=== PATIENT | male | born 1990 | race Caucasian/White ===

== ENCOUNTER 2023-09-21 15:46 | Emergency (ER) | payer SELFPAY ==
[2023-09-21 15:57] VITALS: BP 134/87; PULSE 89; RESP 16; TEMP 37.4; O2SAT 98
--- NOTE | 2023-09-21 17:22 | ED.URI ---
HPI - URI/Sore Throat General Chief Complaint: Upper Respiratory Infection Stated Complaint: Sore throat Time Seen by Provider: 09/21/23 17:14 Source: RN notes reviewed Mode of arrival: ambulatory Limitations: no limitations History of Present Illness HPI Narrative: Patient presents today with a 3 day history of sore throat, cough, slight congestion. Currently rates his pain 8/10 and has been taking Tylenol, DayQuil, and NyQuil with mild relief. Denies known sick contacts or any additional symptoms. Related Data Home Medications Medication Instructions Recorded Confirmed No Home Medications 09/21/23 09/21/23 Allergies Allergy/AdvReac Type Severity Reaction Status Date / Time amoxicillin Allergy Intermediate Hives Verified 09/21/23 16:08 erythromycin base Allergy Intermediate Hives Verified 09/21/23 16:08 Penicillins Allergy Intermediate Hives Verified 09/21/23 16:08 Review of Systems Review of Systems: CONSTITUTIONAL: Denies body aches, fever, chills, or sweats. EYES: Denies visual changes, redness, or discharge. ENT: Denies rhinorrhea, or otalgia.+ sore throat, congestion CARDIOVASCULAR: Denies chest pain, palpitations, or edema. RESPIRATORY: Denies dyspnea.+ cough GASTROINTESTINAL: Denies abdominal pain, nausea, vomiting, or diarrhea. GENITOURINARY: Denies dysuria or hematuria. SKIN: Denies rash, itching, or wounds. MUSCULOSKELETAL: Denies back pain, joint pain, or myalgia. NEUROLOGIC: Denies headache, numbness, tingling, or weakness. PSYCH: Denies depression or anxiety. [facility] Family History Family History Other Family history of cardiovascular disease Social History Social History Smoking status: Never smoker Alcohol intake: current Comments At time of signature, I have reviewed and agree with nursing past medical, surgical, social and family history unless otherwise noted. Please see nursing chart for further information. There is no relevant family history pertinent to the presenting complaint Exam Narrative: GENERAL: Mildly ill-appearing, well-nourished, and in no acute distress. HEAD: Normocephalic, atraumatic. EYES: EOMI. No redness or drainage. Conjunctivae normal. ENT: Mucous membranes pink and moist. Nares clear. No rhinorrhea. TMs normal bilaterally. Throat normal with small amount of white postnasal drainage. Uvula midline. NECK: Normal AROM. Supple. Right anterior cervical chain lymphadenopathy CHEST: No respiratory distress. Clear to auscultation. HEART: Regular rate and rhythm. No murmur appreciated. EXTREMITIES: Normal range of motion. No edema. SKIN: Warm, dry, no rash. Capillary refill normal. Normal skin turgor. NEURO: No focal deficits. Alert and oriented x3. Gait steady. PSYCH: Normal affect. No signs of depression or anxiety. Course Course Level of Care: Express Care Visit Vital Signs Vital signs: Vital Signs Temperature 99.4 F 09/21/23 15:57 Pulse Rate 89 09/21/23 15:57 Respiratory Rate 16 09/21/23 15:57 Blood Pressure 134/87 09/21/23 15:57 Pulse Oximetry 98 09/21/23 15:57 Oxygen Delivery Room Air 09/21/23 15:57 Temperature 99.4 F 09/21/23 15:57 Pulse Rate 89 09/21/23 15:57 Respiratory Rate 16 09/21/23 15:57 Blood Pressure 134/87 09/21/23 15:57 Pulse Oximetry 98 09/21/23 15:57 Oxygen Delivery Room Air 09/21/23 15:57 Reviewed MDM - URI/Sore Throat MDM Narrative Medical decision making narrative: Rapid strep negative. Culture pending. Patient declines testing for influenza or COVID-19. Symptoms likely viral in etiology. Discussed [id number] treatment and duration of illness. No prescription medications indicated at this time. Anticipatory guidance given. Differential Diagnosis Differential diagnosis: Likely upper respiratory infection, viral infection, influenza, p
== END 2023-09-21 17:30 | disposition home or self-care (01) ==
PROVIDERS: Emergency Provider Nurse Practitioner; PCP Family Medicine
DX: J06.9 Acute upper respiratory infection, unspecified (principal)
CPT/HCPCS: 87081; 87880; 99213; G0463

== ENCOUNTER 2024-02-10 11:43 | Outpatient (CLI) | payer OTHER, SELFPAY ==
--- NOTE | ~2024-02-10 | XR_ITS ---
EXAMINATION: XR chest 2V 02/10/2024 12:01 INDICATION: Cough PROCEDURE: 2 view chest COMPARISON: 10/13/2014 FINDINGS: The lungs are clear. The cardiomediastinal silhouette is within normal limits. There are no pleural effusions. There is no pneumothorax suspected. IMPRESSION: 1: NO ACUTE CARDIOPULMONARY DISEASE. Reviewed, dictated and finalized at location B.
== END 2024-02-10 11:44 ==
LOC: MICIMG 11:46
PROVIDERS: PCP Physician Assistant Medical; Visit Provider Physician Assistant Medical
DX: R05.9 Cough, unspecified (principal)
CPT/HCPCS: 71046

== ENCOUNTER 2024-10-23 13:58 | Emergency (ER) | payer OTHER, SELFPAY ==
[2024-10-23 14:11] VITALS: BP 119/90; PULSE 47; RESP 16; TEMP 36.6; O2SAT 99
--- NOTE | 2024-10-23 14:24 | ED.EAR ---
HPI - Ear Problem General Chief complaint: Ear Stated complaint: both ears hurt Time Seen by Provider: 10/23/24 14:12 Source: patient Mode of arrival: ambulatory Limitations: no limitations History of Present Illness HPI Narrative: 34 year sinus congestion sinus pressure. Saw his primary care physician 3 days and given benzonatate. Has been using Flonase daily. Reports pressure to bilateral ears. Last night reports bloody drainage started to right ear. History left TM rupture 1 year ago. All Systems reviewed and negative except as noted. Related Data Allergies Allergy/AdvReac Type Severity Reaction Status Date / Time amoxicillin Allergy Intermediate Hives Verified 10/23/24 14:02 erythromycin base Allergy Intermediate Hives Verified 10/23/24 14:02 Penicillins Allergy Intermediate Hives Verified 10/23/24 14:02 Review of Systems Review of Systems: CONSTITUTIONAL: Denies fever, chills, or sweats. EYES: Denies visual changes, redness, or discharge. ENT: reports rhinorrhea, congestion, sinus pressure. Denies sore throat reports bilateral otalgia. reports bloody drainage right ear. CARDIOVASCULAR: Denies chest pain, palpitations, or edema. RESPIRATORY: Denies cough or dyspnea. GASTROINTESTINAL: Denies abdominal pain, nausea, vomiting, or diarrhea. GENITOURINARY: Denies dysuria or hematuria. SKIN: Denies rash or itching. MUSCULOSKELETAL: Denies back pain, joint pain, or myalgia. NEUROLOGIC: Denies headache, numbness, or weakness. PSYCHIATRIC: Denies anxiety or depression. All other systems reviewed are negative, except as documented in HPI. [facility] Past Medical History Medical History Asthma Catarrh of both eustachian tubes Family History Family History Mother Hypertension Other Family history of cardiovascular disease Social History Social History (Updated 03/09/24 @ 10:07 by Vaishnavi Elkins) Smoking status: Never smoker Second hand tobacco smoke exposure: Yes Alcohol intake: current Drinks per week: 1 Alcohol use details: 1-2 drinks per month Substance use: never Do You Feel Safe in your Home?: Yes Lack of Transportation: No Lack of Food: Never True Current Housing: I Have Housing Concerned About Future Housing: No Difficulty Paying Gas/Electric Bills: No Difficulty Paying for Meds: No Currently Unemployed: YES Education: Associate Degree Difficulty w/ Childcare or Family Care: No Living arrangements: with family Occupation/Education: unemployed Gender identity (if verbalized by the patient): Male Spiritual care concerns: No Agree to blood products: Yes Comments At time of signature, agree with nursing past medical, surgical, social and family history. There is no relevant family history pertinent to the presenting complaint. Exam Narrative: GENERAL: This is a well-nourished, well-developed patient, in no apparent distress. HEAD: normocephalic, atraumatic. EYES: PERRL. Sclera clear/white. Vision is grossly intact. EARS: External ears normal, auditory canals clear and without drainage, left TM is opaque, scarring noted to ear drum, dull light reflex. Right TM is ruptured with purulent bloody drainage. NOSE: External nose normal with Congestion purulent nasal drainage, maxillary sinus tenderness palpation bilaterally THROAT: Mucous membranes moist, Erythematous with postnasal drainage NECK: Neck supple, non-tender without lymphadenopathy, masses or thyromegaly. CARDIOVASCULAR: Regular rate and rhythm without murmurs, gallops, or rubs. RESPIRATORY: Clear to auscultation. Breath sounds equal bilaterally. No wheezes, rales, or rhonchi. SKIN: warm, Dry, intact with no suspicious lesions or rash, good texture and turgor. NEURO: awake, alert, and oriented to person, place and time. There were no obvious focal neurologic abnormalities. EXTREMITIES: No joint tenderness, effusion, or edema noted. Course Course Level of Care: Express Care Visit Vital Signs Vital signs: Vital Signs Temperature 36.6 C 10/23/24 14:11 Pulse Rate 47 L 10/23/24 14:11 Respiratory Rate 16 10/23/24 14:11 Blood Pressure 119/90 10/23/24 14:11 Pulse Oximetry 99 10/23/24 14:11 Oxygen Delivery Room Air 10/23/24 14:11 Temperature 36.6 C 10/23/24 14:11 Pulse Rate 47 L 10/23/24 14:11 Respiratory Rate 16 10/23/24 14:11 Blood Pressure 119/90 10/23/24 14:11 Pulse Oximetry 99 10/23/24 14:11 Oxygen Delivery Room Air 10/23/24 14:11 reviewed Medical Decision Making MDM Narrative Medical decision making narrative: treat patient with ofloxacin for right otitis media rupture. Will prescribe doxycycline for bacterial sinusitis. Refer to ENT for follow-up. Patient is alert, nontoxic. Please be advised this is a medical document. It is intended for [id number] communication. It is written in medical language and may contain unfamiliar abbreviations or verbiage. Medical documents are intended to carry relevant information, facts as evident, and the clinical opinion of the practitioner at the time of the encounter. This report may have been done utilizing a voice recognition system. Attempts have been made to correct errors. However, there may be uncorrected grammatical, spelling, and recognition errors present. The file time of this note does not necessarily represent the time of service. Vital Signs Vital Signs: Vital Signs Temperature 36.6 C 10/23/24 14:11 Pulse Rate 47 L 10/23/24 14:11 Respiratory Rate 16 10/23/24 14:11 Blood Pressure 119/90 10/23/24 14:11 Pulse Oximetry 99 10/23/24 14:11 Oxygen Delivery Room Air 10/23/24 14:11 Temperature 36.6 C 10/23/24 14:11 Pulse Rate 47 L 10/23/24 14:11 Respiratory Rate 16 10/23/24 14:11 Blood Pressure 119/90 10/23/24 14:11 Pulse Oximetry 99 10/23/24 14:11 Oxygen Delivery Room Air 10/23/24 14:11 Discharge Plan Discharge Clinical Impression: Acute bacterial sinusitis, Otitis media of right ear with spontaneous rupture of tympanic membrane Patient Disposition: Home, Self-Care Condition: Stable Instructions: Antibiotic Form, Ruptured Eardrum (ED) Patient Language: Slovenian Prescriptions: New doxycycline hyclate 100 mg capsule 100 mg PO BID 7 Days Qty: 14 0RF ofloxacin 0.3 % drops 10 drp RIGHT EAR DAILY 7 Days Qty: 5 0RF No Action benzonatate 100 mg capsule 100 mg PO TID PRN (Reason: cough) Qty: 30 0RF Follow-up/Referrals: Brandon Freeman MD [Physician] - (Follow up with ENT specialist to further evaluate right ear) Phi Grewal MD [Primary Care Provider] - Time of Disposition: 14:35
== END 2024-10-23 14:39 | disposition home or self-care (01) ==
PROVIDERS: Emergency Provider Nurse Practitioner Family; PCP Family Medicine
DX: J01.90 Acute sinusitis, unspecified (principal); H66.91 Otitis media, unspecified, right ear; H72.91 Unspecified perforation of tympanic membrane, right ear; J45.909 Unspecified asthma, uncomplicated
CPT/HCPCS: 99213; G0463